=== PATIENT | female | born 1990 | race Caucasian/White ===

== ENCOUNTER 2022-07-11 18:12 | Emergency (ER) | payer MEDICAID ==
[~2022-07-11] VITALS: Ht 162.6 cm; Wt 66.2 kg
[2022-07-11 18:29] VITALS: BP 129/79
[2022-07-11] MEDS ORDERED: KETOROLAC 15 MG/ML VIAL IM ONE (22:20)
[2022-07-11] MEDS ORDERED: ACETAMINOPHEN 325 MG TAB PO ONE (23:15)
--- NOTE | 2022-07-11 23:27 | NUR ---
COLLECTED TAKEN TO LAB
[2022-07-11] MEDS ORDERED: ONDANSETRON 4 MG ODT PO ONE (23:30)
[2022-07-11 23:35] LABS: BASOPHILS # (AUTO) 0.1 K/uL (0.00-0.22); BASOPHILS % (AUTO) 0.7 % (0.0-2.0); EOSINOPHILS % (AUTO) 0.3 % (0.0-4.0); HEMATOCRIT 36.8 % (36-48); HEMOGLOBIN 12.1 g/dL (12.0-16.0); LYMPHOCYTES # (AUTO) 2.1 K/uL (2.5-16.5); LYMPHOCYTES % (AUTO) 18.7 % (20.5-51.1); MEAN CORPUSCULAR HEMOGLOBIN 29 pg (27-31); MEAN CORPUSCULAR HGB CONC 33 g/dL (33-37); MEAN CORPUSCULAR VOLUME 89.2 fL (80-94); MONOCYTES # (AUTO) 0.9 K/uL (0.8-1.0); MONOCYTES % (AUTO) 8.3 % (1.7-9.3); NEUTROPHILS # (AUTO) 8.2 K/uL (1.8-7.7); PLATELET COUNT (AUTO) 224 K/uL (140-450); RED BLOOD CELL COUNT(AUTO) 4.12 MIL/uL (4.20-5.40); RED CELL DISTRIBUTION WIDTH 15.7 % (11.6-13.7); WHITE BLOOD COUNT (AUTO) 11.3 K/uL (4.8-10.8)
[2022-07-12] MEDS ORDERED: ACETAMINOPHEN 325 MG TAB ONE (00:33)
[2022-07-12] MEDS ORDERED: ONDANSETRON 4 MG ODT ONE (00:33)
--- NOTE | 2022-07-12 02:08 | NUR ---
31/F C/O LOWER ABD PAIN, N/V, SORE THROAT AND BODY ACHES SINCE TUESDAY, REPORTS TAKING TYLENOL WITH NO RELIEF. PATIENT STATES SHE IS 2 WEEKS , PT IS A2. PMH: DENIES NIKA
[2022-07-12 04:34] VITALS: BP 122/68
--- NOTE | 2022-07-12 04:34 | NUR ---
Patient discharged with v/s stable. Written and verbal after care instructions given and explained. Patient verbalized understanding. Ambulatory with steady gait. All questions addressed prior to discharge. Advised to follow up with PMD.
== END 2022-07-12 04:34 | disposition home or self-care (01) ==
LOC: MED 18:12
DX: O26.891 Other specified pregnancy related conditions, first trimester (principal); Z20.822 Contact with and (suspected) exposure to COVID-19; O21.8 Other vomiting complicating pregnancy; B34.9 Viral infection, unspecified; Z3A.01 Less than 8 weeks gestation of pregnancy
CPT/HCPCS: 36415; 76817; 81002; 81025; 84702; 85025; 86900; 86901; 87426; 99284; Q0092; Q0162